=== PATIENT | male | born 1955 | race Caucasian/White ===

== ENCOUNTER 2019-12-10 01:46 | Inpatient (IN) | payer OTHER ==
[~2019-12-10] VITALS: Ht 180.3 cm; Wt 94.3 kg
[~2019-12-10 01:46] MED LIST: ARIP2 PO; DIVA-78 PO; INSLAN SQ; INSU100C3 SQ; LISI-662 PO; METF1000 PO; OMEP20 PO; PALI117D IM; QUET300T2 PO; RISP2 PO
[2019-12-10 02:15] LABS: APPEARANCE,URINE CLEAR (CLEAR); BILIRUBIN,URINE NEGATIVE (NEGATIVE); GLUCOSE, URINE (UA) 500 mg/dL (NEGATIVE); KETONES,URINE TRACE mg/dL (NEGATIVE); LEUKOCYTE ESTERASE ,URINE NEGATIVE (NEGATIVE); NITRATE,URINE NEGATIVE (NEGATIVE); OCCULT BLOOD,URINE NEGATIVE (NEGATIVE); PROTEIN,URINE NEGATIVE (NEGATIVE); UROBILINOGEN,URINE 0.2 mg/dL (<=1.0)
[2019-12-10 02:26] LABS: BACTERIA,URINE None Seen /HPF (None Seen); RBC,URINE 0-2 /HPF (0-2); SQUAMOUS EPITHELIAL CELL,UR Rare /LPF (None Seen); WBC,URINE 0-2 /HPF (0-5)
[2019-12-10 02:29] LABS: BASOPHILS % (AUTO) 0.3 % (0.0-2.0); EOSINOPHILS % (AUTO) 0.2 % (1.0-6.0); HEMATOCRIT 40.8 % (41-53); HEMOGLOBIN 13.9 g/dL (13.5-17.5); LYMPHOCYTES # (AUTO) 1.1 K/uL (1.0-4.8); LYMPHOCYTES % (AUTO) 12.8 % (22.0-44.0); MEAN CORPUSCULAR HEMOGLOBIN 32.7 pg (26.0-34.0); MEAN CORPUSCULAR HGB CONC 34.1 G/dL (31.0-37.0); MEAN CORPUSCULAR VOLUME 96 fL (80-100); MONOCYTES # (AUTO) 0.4 K/uL (0.1-1.0); MONOCYTES % (AUTO) 4.6 % (2.0-9.0); NEUTROPHILS # (AUTO) 6.8 K/uL (1.8-7.7); NEUTROPHILS % (AUTO) 82.1 % (40.0-70.0); PLATELET COUNT (AUTO) 203 K/uL (150-450); RED BLOOD CELL COUNT(AUTO) 4.25 MIL/uL (4.50-5.90); RED CELL DISTRIBUTION WIDTH 12.8 % (11.5-14.5)
[2019-12-10 02:36] LABS: CALCIUM, TOTAL 9.9 mg/dL (8.8-10.5); CREATININE 1.23 mg/dL (0.60-1.30); POTASSIUM 4.3 mmol/L (3.5-5.1)
[2019-12-10 02:49] LABS: ALBUMIN 3.7 g/dL (3.4-5.0); BILIRUBIN,TOTAL 0.2 mg/dL (0.1-1.0); TOTAL PROTEIN, SERUM 7.8 g/dL (6.4-8.2)
[2019-12-10 02:52] LABS: GLUCOSE,POINT OF CARE 157 MG/DL (70-110)
[2019-12-10] MEDS ORDERED: 0.9% SODIUM CHLORIDE 10 ML SYRINGE IVP PRN ×2 (05:00→07:15)
[2019-12-10] MEDS ORDERED: ACETAMINOPHEN 325 MG TABLET PO PRN (05:00)
[2019-12-10] MEDS ORDERED: ONDANSETRON HCL 4 MG/2 ML VIAL IVP PRN ×2 (05:00→07:15)
[2019-12-10 07:10] LABS: GLUCOSE,POINT OF CARE 210 MG/DL (70-110)
[2019-12-10] MEDS ORDERED: LORazepam 2 MG/ML VIAL IVP PRN (07:15)
[2019-12-10] MEDS ORDERED: MAGNESIUM SULFATE 4 GM/WATER 100 ML IV PRN (07:15)
[2019-12-10] MEDS ORDERED: POTASSIUM CHLORIDE 20 MEQ ER TABLET PO PRN (07:15)
[2019-12-10] MEDS ORDERED: DEXTROSE 50%-WATER 25 GM/50 ML SYRINGE IVP PRN (07:15)
[2019-12-10] MEDS ORDERED: ZOLPIDEM TARTRATE 5 MG TABLET PO PRN (07:15)
[2019-12-10] MEDS: MetFORMIN HCL 500 MG TABLET PO SCH ×2 (07:26→19:14)
[2019-12-10] MEDS: DIVALPROEX SODIUM 500 MG DR TABLET PO SCH (08:52)
[2019-12-10] MEDS: DOCUSATE SODIUM 100 MG CAPSULE PO SCH ×2 (08:53→20:10)
[2019-12-10] MEDS: PANTOPRAZOLE SODIUM 40 MG DR TABLET PO SCH (08:53)
[2019-12-10] MEDS ORDERED: OMEPRAZOLE 20 MG CAPSULE PO SCH (09:00)
[2019-12-10] MEDS ORDERED: PALIPERIDONE PALMITATE 117 MG/0.75 ML SYRINGE IM SCH (09:00)
[2019-12-10] MEDS: RisperiDONE 2 MG TABLET PO SCH (09:32)
[2019-12-10] MEDS: QUEtiapine FUMARATE 300 MG TABLET PO SCH (09:32)
[2019-12-10] MEDS: LISINOPRIL 20 MG TABLET PO SCH (09:32)
[2019-12-10] MEDS: ARIPiprazole 2 MG TABLET PO SCH (09:32)
[2019-12-10] MEDS ORDERED: METF-960 PO (10:50)
[2019-12-10] MEDS ORDERED: INSU100V SQ (10:50)
[2019-12-10 13:10] LABS: GLUCOSE,POINT OF CARE 218 MG/DL (70-110)
[2019-12-10 18:32] LABS: GLUCOSE,POINT OF CARE 232 MG/DL (70-110)
[2019-12-10] MEDS: INSULIN LISPRO 100 UNITS/ML SQ PRN (21:05)
[2019-12-10] MEDS: INSULIN GLARGINE,HUM.REC.ANLOG 100 UNITS/ML SQ SCH (21:07)
[2019-12-10 21:52] VITALS: BP 132/80
[2019-12-10 23:59] VITALS: BP 164/86
[2019-12-11 02:17] LABS: GLUCOMETER DEV NAME(LOC) 5N.2; GLUCOSE,POINT OF CARE 211 MG/DL (70-110)
[2019-12-11 04:28] VITALS: BP 132/69
[2019-12-11] MEDS: INSULIN LISPRO 100 UNITS/ML SQ PRN ×4 (06:29→20:56)
[2019-12-11 07:37] LABS: BASOPHILS % (AUTO) 0.4 % (0.0-2.0); EOSINOPHILS % (AUTO) 4.2 % (1.0-6.0); HEMATOCRIT 36.1 % (41-53); HEMOGLOBIN 12.6 g/dL (13.5-17.5); LYMPHOCYTES # (AUTO) 2.9 K/uL (1.0-4.8); LYMPHOCYTES % (AUTO) 52.1 % (22.0-44.0); MEAN CORPUSCULAR HEMOGLOBIN 33.1 pg (26.0-34.0); MEAN CORPUSCULAR HGB CONC 34.9 G/dL (31.0-37.0); MEAN CORPUSCULAR VOLUME 95 fL (80-100); MONOCYTES # (AUTO) 0.5 K/uL (0.1-1.0); NEUTROPHILS # (AUTO) 1.9 K/uL (1.8-7.7); NEUTROPHILS % (AUTO) 34.3 % (40.0-70.0); PLATELET COUNT (AUTO) 193 K/uL (150-450); RED CELL DISTRIBUTION WIDTH 12.8 % (11.5-14.5)
[2019-12-11 08:13] LABS: ALANINE AMINOTRANSFERASE 14 U/L (12-78); ALKALINE PHOSPHATASE 55 U/L (46-116); ANION GAP 8 mmol/L (8-16); ASPARTATE AMINOTRANSFERASE 10 U/L (15-37); BILIRUBIN,TOTAL 0.2 mg/dL (0.1-1.0); CALCIUM, TOTAL 8.9 mg/dL (8.8-10.5); CARBON DIOXIDE 30 mmol/L (22-29); CHLORIDE 96 mmol/L (98-107); CREATININE 1.03 mg/dL (0.60-1.30); GLOMERULAR FILTR. RATE CALC > 60 mL/min (>60); GLUCOSE,RANDOM 177 mg/dL (70-110); POTASSIUM 3.5 mmol/L (3.5-5.1); SODIUM SERUM 134 mmol/L (136-145); TOTAL PROTEIN, SERUM 6.6 g/dL (6.4-8.2); UREA NITROGEN, BLOOD 12 mg/dL (7-18)
[2019-12-11] MEDS: DOCUSATE SODIUM 100 MG CAPSULE PO SCH ×2 (08:29→20:53)
[2019-12-11] MEDS: MetFORMIN HCL 500 MG TABLET PO SCH ×2 (08:29→17:42)
[2019-12-11] MEDS: PANTOPRAZOLE SODIUM 40 MG DR TABLET PO SCH (08:29)
[2019-12-11] MEDS: RisperiDONE 2 MG TABLET PO SCH (08:30)
[2019-12-11] MEDS: ARIPiprazole 2 MG TABLET PO SCH (08:30)
[2019-12-11] MEDS: LISINOPRIL 20 MG TABLET PO SCH (08:30)
[2019-12-11] MEDS: QUEtiapine FUMARATE 300 MG TABLET PO SCH (08:30)
[2019-12-11] MEDS: DIVALPROEX SODIUM 500 MG DR TABLET PO SCH (08:30)
[2019-12-11 08:38] VITALS: BP 158/101
[2019-12-11] MEDS ORDERED: SODIUM CHLORIDE 0.9% 0 ML IV ONE (10:26)
[2019-12-11] MEDS: POTASSIUM CHL 10 MEQ/WATER 50 ML IV PRN ×3 (11:08→13:59)
[2019-12-11 11:39] VITALS: BP 143/81
[2019-12-11] MEDS: MAGNESIUM SULFATE 2 GM/WATER 50 ML IV PRN (11:42)
[2019-12-11 12:38] LABS: GLUCOMETER DEV NAME(LOC) 5N.2; GLUCOSE,POINT OF CARE 209 MG/DL (70-110)
[2019-12-11 12:38] LABS: GLUCOMETER DEV NAME(LOC) 5N.2; GLUCOSE,POINT OF CARE 205 MG/DL (70-110)
[2019-12-11 16:29] VITALS: BP 135/69
[2019-12-11 19:18] VITALS: BP 146/88
[2019-12-11 20:49] LABS: GLUCOMETER DEV NAME(LOC) 5N.2; GLUCOSE,POINT OF CARE 234 MG/DL (70-110)
[2019-12-11] MEDS: INSULIN GLARGINE,HUM.REC.ANLOG 100 UNITS/ML SQ SCH (20:56)
[2019-12-11 21:21] LABS: GLUCOMETER DEV NAME(LOC) 5S.2A; GLUCOSE,POINT OF CARE 157 MG/DL (70-110)
[2019-12-12 00:16] VITALS: BP 139/79
[2019-12-12 05:28] VITALS: BP 152/72
[2019-12-12] MEDS: INSULIN LISPRO 100 UNITS/ML SQ PRN ×4 (06:02→20:40)
[2019-12-12 06:16] LABS: GLUCOMETER DEV NAME(LOC) 5S.2A; GLUCOSE,POINT OF CARE 174 MG/DL (70-110)
[2019-12-12 07:00] VITALS: BP 151/87
[2019-12-12 07:26] LABS: ANION GAP 8 mmol/L (8-16); CALCIUM, TOTAL 8.9 mg/dL (8.8-10.5); CARBON DIOXIDE 29 mmol/L (22-29); CHLORIDE 97 mmol/L (98-107); CREATININE 0.84 mg/dL (0.60-1.30); GLOMERULAR FILTR. RATE CALC > 60 mL/min (>60); GLUCOSE,RANDOM 176 mg/dL (70-110); POTASSIUM 3.9 mmol/L (3.5-5.1); SODIUM SERUM 134 mmol/L (136-145); UREA NITROGEN, BLOOD 14 mg/dL (7-18)
[2019-12-12] MEDS: ARIPiprazole 2 MG TABLET PO SCH (08:22)
[2019-12-12] MEDS: MetFORMIN HCL 500 MG TABLET PO SCH ×2 (08:22→17:52)
[2019-12-12] MEDS: DOCUSATE SODIUM 100 MG CAPSULE PO SCH ×2 (08:23→20:32)
[2019-12-12] MEDS: DIVALPROEX SODIUM 500 MG DR TABLET PO SCH (08:24)
[2019-12-12] MEDS: PANTOPRAZOLE SODIUM 40 MG DR TABLET PO SCH (08:25)
[2019-12-12] MEDS: QUEtiapine FUMARATE 300 MG TABLET PO SCH (08:25)
[2019-12-12] MEDS: RisperiDONE 2 MG TABLET PO SCH (08:25)
[2019-12-12] MEDS: MAGNESIUM OXIDE 400 MG TABLET PO PRN ×3 (08:40→22:07)
[2019-12-12] MEDS: LISINOPRIL 20 MG TABLET PO SCH (08:40)
[2019-12-12 11:01] VITALS: BP 144/71
[2019-12-12 12:12] LABS: GLUCOMETER DEV NAME(LOC) 5N.2; GLUCOSE,POINT OF CARE 166 MG/DL (70-110)
[2019-12-12 15:29] VITALS: BP 144/79
[2019-12-12 20:20] VITALS: BP 145/84
[2019-12-12 20:34] LABS: GLUCOMETER DEV NAME(LOC) 5N.2; GLUCOSE,POINT OF CARE 176 MG/DL (70-110)
[2019-12-12 20:34] LABS: GLUCOMETER DEV NAME(LOC) 5N.2; GLUCOSE,POINT OF CARE 203 MG/DL (70-110)
[2019-12-12] MEDS: INSULIN GLARGINE,HUM.REC.ANLOG 100 UNITS/ML SQ SCH (20:39)
[2019-12-13] VITALS (7 sets, daily range): BP systolic 116–163; BP diastolic 52–90
[2019-12-13] MEDS: ACETAMINOPHEN 325 MG TABLET PO PRN ×2 (04:18→20:51)
[2019-12-13] MEDS: INSULIN LISPRO 100 UNITS/ML SQ PRN ×3 (05:50→17:17)
[2019-12-13 05:55] LABS: BASOPHILS % (AUTO) 0.7 % (0.0-2.0); EOSINOPHILS % (AUTO) 6.4 % (1.0-6.0); HEMATOCRIT 36.2 % (41-53); HEMOGLOBIN 12.6 g/dL (13.5-17.5); LYMPHOCYTES # (AUTO) 2.4 K/uL (1.0-4.8); LYMPHOCYTES % (AUTO) 44.9 % (22.0-44.0); MEAN CORPUSCULAR HEMOGLOBIN 32.6 pg (26.0-34.0); MEAN CORPUSCULAR HGB CONC 34.8 G/dL (31.0-37.0); MEAN CORPUSCULAR VOLUME 94 fL (80-100); MONOCYTES # (AUTO) 0.5 K/uL (0.1-1.0); MONOCYTES % (AUTO) 9.7 % (2.0-9.0); NEUTROPHILS % (AUTO) 38.3 % (40.0-70.0); PLATELET COUNT (AUTO) 185 K/uL (150-450); RED BLOOD CELL COUNT(AUTO) 3.87 MIL/uL (4.50-5.90); RED CELL DISTRIBUTION WIDTH 12.7 % (11.5-14.5)
[2019-12-13 06:20] LABS: ANION GAP 9 mmol/L (8-16); CALCIUM, TOTAL 8.8 mg/dL (8.8-10.5); CARBON DIOXIDE 26 mmol/L (22-29); CHLORIDE 99 mmol/L (98-107); CREATININE 0.97 mg/dL (0.60-1.30); GLOMERULAR FILTR. RATE CALC > 60 mL/min (>60); GLUCOSE,RANDOM 144 mg/dL (70-110); POTASSIUM 3.8 mmol/L (3.5-5.1); SODIUM SERUM 134 mmol/L (136-145); UREA NITROGEN, BLOOD 14 mg/dL (7-18)
[2019-12-13] MEDS: DIVALPROEX SODIUM 500 MG DR TABLET PO SCH (08:33)
[2019-12-13] MEDS: DOCUSATE SODIUM 100 MG CAPSULE PO SCH ×2 (08:34→20:51)
[2019-12-13] MEDS: ARIPiprazole 2 MG TABLET PO SCH (08:34)
[2019-12-13] MEDS: QUEtiapine FUMARATE 300 MG TABLET PO SCH (08:34)
[2019-12-13] MEDS: RisperiDONE 2 MG TABLET PO SCH (08:34)
[2019-12-13] MEDS: LISINOPRIL 20 MG TABLET PO SCH (08:34)
[2019-12-13] MEDS: MetFORMIN HCL 500 MG TABLET PO SCH ×2 (08:34→17:16)
[2019-12-13] MEDS: PANTOPRAZOLE SODIUM 40 MG DR TABLET PO SCH (08:34)
[2019-12-13] MEDS: MAGNESIUM SULFATE 2 GM/WATER 50 ML IV PRN (09:33)
[2019-12-13 14:28] LABS: GLUCOMETER DEV NAME(LOC) 5N.2; GLUCOSE,POINT OF CARE 155 MG/DL (70-110)
[2019-12-13 18:30] LABS: GLUCOMETER DEV NAME(LOC) 5N.2; GLUCOSE,POINT OF CARE 141 MG/DL (70-110)
[2019-12-13 18:31] LABS: GLUCOMETER DEV NAME(LOC) 5S.2A; GLUCOSE,POINT OF CARE 145 MG/DL (70-110)
[2019-12-13] MEDS: INSULIN GLARGINE,HUM.REC.ANLOG 100 UNITS/ML SQ SCH (22:28)
[2019-12-14 05:09] VITALS: BP 155/98
[2019-12-14 06:23] LABS: GLUCOMETER DEV NAME(LOC) 5S.2A; GLUCOSE,POINT OF CARE 135 MG/DL (70-110)
[2019-12-14 07:06] LABS: BASOPHILS % (AUTO) 0.4 % (0.0-2.0); EOSINOPHILS % (AUTO) 6.2 % (1.0-6.0); HEMATOCRIT 37.1 % (41-53); LYMPHOCYTES # (AUTO) 2.5 K/uL (1.0-4.8); LYMPHOCYTES % (AUTO) 45.6 % (22.0-44.0); MEAN CORPUSCULAR HEMOGLOBIN 32.7 pg (26.0-34.0); MEAN CORPUSCULAR VOLUME 93 fL (80-100); MONOCYTES # (AUTO) 0.4 K/uL (0.1-1.0); MONOCYTES % (AUTO) 7.8 % (2.0-9.0); NEUTROPHILS # (AUTO) 2.2 K/uL (1.8-7.7); PLATELET COUNT (AUTO) 185 K/uL (150-450); RED BLOOD CELL COUNT(AUTO) 3.98 MIL/uL (4.50-5.90); RED CELL DISTRIBUTION WIDTH 12.6 % (11.5-14.5)
[2019-12-14 07:15] LABS: PROTHROMBIN TIME 10.2 SEC (9.4-11.6)
[2019-12-14 07:29] LABS: ALANINE AMINOTRANSFERASE 13 U/L (12-78); ALBUMIN 3.2 g/dL (3.4-5.0); ALKALINE PHOSPHATASE 51 U/L (46-116); ANION GAP 7 mmol/L (8-16); ASPARTATE AMINOTRANSFERASE 6 U/L (15-37); BILIRUBIN,TOTAL 0.3 mg/dL (0.1-1.0); CALCIUM, TOTAL 8.9 mg/dL (8.8-10.5); CARBON DIOXIDE 27 mmol/L (22-29); CHLORIDE 99 mmol/L (98-107); CREATININE 0.92 mg/dL (0.60-1.30); GLOMERULAR FILTR. RATE CALC > 60 mL/min (>60); GLUCOSE,RANDOM 139 mg/dL (70-110); POTASSIUM 4.4 mmol/L (3.5-5.1); SODIUM SERUM 133 mmol/L (136-145); TOTAL PROTEIN, SERUM 6.7 g/dL (6.4-8.2); UREA NITROGEN, BLOOD 15 mg/dL (7-18)
[2019-12-14 08:09] LABS: GLUCOMETER DEV NAME(LOC) 5S.2A; GLUCOSE,POINT OF CARE 132 MG/DL (70-110)
[2019-12-14 08:21] VITALS: BP 119/75
[2019-12-14] MEDS: RisperiDONE 2 MG TABLET PO SCH (09:04)
[2019-12-14] MEDS: DIVALPROEX SODIUM 500 MG DR TABLET PO SCH (09:04)
[2019-12-14] MEDS: MAGNESIUM SULFATE 2 GM/WATER 50 ML IV PRN (09:04)
[2019-12-14] MEDS: QUEtiapine FUMARATE 300 MG TABLET PO SCH (09:04)
[2019-12-14] MEDS: LISINOPRIL 20 MG TABLET PO SCH (09:05)
[2019-12-14] MEDS: MetFORMIN HCL 500 MG TABLET PO SCH ×2 (09:05→17:11)
[2019-12-14] MEDS: ARIPiprazole 2 MG TABLET PO SCH (09:05)
[2019-12-14] MEDS: DOCUSATE SODIUM 100 MG CAPSULE PO SCH ×2 (09:05→21:41)
[2019-12-14] MEDS: PANTOPRAZOLE SODIUM 40 MG DR TABLET PO SCH (09:05)
[2019-12-14 11:15] VITALS: BP 128/77
[2019-12-14] MEDS: INSULIN LISPRO 100 UNITS/ML SQ PRN ×2 (12:20→21:57)
[2019-12-14 15:31] VITALS: BP 158/78
[2019-12-14] MEDS: GABAPENTIN 300 MG CAPSULE PO SCH ×2 (17:11→21:41)
[2019-12-14 19:36] VITALS: BP 147/85
[2019-12-14] MEDS: INSULIN GLARGINE,HUM.REC.ANLOG 100 UNITS/ML SQ SCH (22:00)
[2019-12-15] VITALS (14 sets, daily range): BP systolic 114–154; BP diastolic 61–99
[2019-12-15 03:25] LABS: GLUCOMETER DEV NAME(LOC) 5S.2A; GLUCOSE,POINT OF CARE 146 MG/DL (70-110)
[2019-12-15 03:25] LABS: GLUCOMETER DEV NAME(LOC) 5N.2; GLUCOSE,POINT OF CARE 143 MG/DL (70-110)
[2019-12-15 03:25] LABS: GLUCOMETER DEV NAME(LOC) 5S.2A; GLUCOSE,POINT OF CARE 180 MG/DL (70-110)
[2019-12-15 06:27] LABS: BASOPHILS % (AUTO) 0.8 % (0.0-2.0); EOSINOPHILS % (AUTO) 6.5 % (1.0-6.0); HEMATOCRIT 38.3 % (41-53); HEMOGLOBIN 13.3 g/dL (13.5-17.5); LYMPHOCYTES # (AUTO) 2.6 K/uL (1.0-4.8); LYMPHOCYTES % (AUTO) 44.2 % (22.0-44.0); MEAN CORPUSCULAR HEMOGLOBIN 32.6 pg (26.0-34.0); MEAN CORPUSCULAR HGB CONC 34.8 G/dL (31.0-37.0); MEAN CORPUSCULAR VOLUME 94 fL (80-100); MONOCYTES # (AUTO) 0.4 K/uL (0.1-1.0); MONOCYTES % (AUTO) 7.7 % (2.0-9.0); NEUTROPHILS # (AUTO) 2.4 K/uL (1.8-7.7); NEUTROPHILS % (AUTO) 40.8 % (40.0-70.0); PLATELET COUNT (AUTO) 194 K/uL (150-450); RED BLOOD CELL COUNT(AUTO) 4.08 MIL/uL (4.50-5.90); RED CELL DISTRIBUTION WIDTH 12.9 % (11.5-14.5)
[2019-12-15 06:37] LABS: PROTHROMBIN TIME 10.3 SEC (9.4-11.6)
[2019-12-15 06:55] LABS: ALANINE AMINOTRANSFERASE 16 U/L (12-78); ALBUMIN 3.2 g/dL (3.4-5.0); ALKALINE PHOSPHATASE 51 U/L (46-116); ANION GAP 7 mmol/L (8-16); ASPARTATE AMINOTRANSFERASE 7 U/L (15-37); BILIRUBIN,TOTAL 0.3 mg/dL (0.1-1.0); CALCIUM, TOTAL 9.2 mg/dL (8.8-10.5); CARBON DIOXIDE 29 mmol/L (22-29); CHLORIDE 102 mmol/L (98-107); CREATININE 0.81 mg/dL (0.60-1.30); GLOMERULAR FILTR. RATE CALC > 60 mL/min (>60); GLUCOSE,RANDOM 133 mg/dL (70-110); POTASSIUM 4.6 mmol/L (3.5-5.1); SODIUM SERUM 138 mmol/L (136-145); TOTAL PROTEIN, SERUM 6.7 g/dL (6.4-8.2); UREA NITROGEN, BLOOD 17 mg/dL (7-18)
[2019-12-15] MEDS ORDERED: LIDOCAINE/PF 1% 30 ML VIAL ONE (08:42)
[2019-12-15] MEDS ORDERED: SODIUM BICARBONATE 50 MEQ/50 ML VIAL ONE (08:42)
[2019-12-15] MEDS ORDERED: MIDAZOLAM HCL 2 MG/2 ML VIAL ONE (09:31)
[2019-12-15] MEDS ORDERED: FentaNYL CITRATE-PF 100 MCG/2 ML VIAL ONE (09:31)
[2019-12-15] MEDS ORDERED: SODIUM CHLORIDE 0.9% 500 ML IV ONE (09:35)
[2019-12-15] MEDS ORDERED: LIDOCAINE 1% 30 ML/SOD BICARB 8.4% 4 ML SQ ONE (09:45)
[2019-12-15] MEDS ORDERED: FentaNYL CITRATE-PF 100 MCG/2 ML VIAL IVP ONE ×3 (10:00→10:15)
[2019-12-15] MEDS ORDERED: MIDAZOLAM HCL 2 MG/2 ML VIAL IVP ONE ×3 (10:00→10:15)
[2019-12-15] MEDS ORDERED: HYDROCODONE/ACETAMINOPHEN 5-325 MG TABLET PO PRN (11:00)
[2019-12-15] MEDS ORDERED: SODIUM CHLORIDE 0.9% 250 ML IV ONE (14:51)
[2019-12-15] MEDS: ARIPiprazole 2 MG TABLET PO SCH (14:58)
[2019-12-15] MEDS: GABAPENTIN 300 MG CAPSULE PO SCH ×3 (14:58→20:21)
[2019-12-15] MEDS: RisperiDONE 2 MG TABLET PO SCH (14:59)
[2019-12-15] MEDS: PANTOPRAZOLE SODIUM 40 MG DR TABLET PO SCH (14:59)
[2019-12-15] MEDS: LISINOPRIL 20 MG TABLET PO SCH (14:59)
[2019-12-15] MEDS: DIVALPROEX SODIUM 500 MG DR TABLET PO SCH (15:01)
[2019-12-15] MEDS: MetFORMIN HCL 500 MG TABLET PO SCH ×2 (15:01→17:28)
[2019-12-15] MEDS: DOCUSATE SODIUM 100 MG CAPSULE PO SCH ×2 (15:01→20:21)
[2019-12-15] MEDS: CeFAZolin 1 GM/DEXTROSE 50 ML IV SCH ×2 (15:02→21:14)
[2019-12-15] MEDS: ACETAMINOPHEN 325 MG TABLET PO PRN (17:28)
[2019-12-15] MEDS: INSULIN LISPRO 100 UNITS/ML SQ PRN ×2 (17:34→20:34)
[2019-12-15] MEDS: MAGNESIUM OXIDE 400 MG TABLET PO PRN (17:36)
[2019-12-15] MEDS: INSULIN GLARGINE,HUM.REC.ANLOG 100 UNITS/ML SQ SCH (20:34)
[2019-12-16 00:22] VITALS: BP 145/73
[2019-12-16] MEDS: ACETAMINOPHEN 325 MG TABLET PO PRN ×2 (02:31→10:39)
[2019-12-16 03:35] VITALS: BP 131/86
[2019-12-16 06:41] LABS: GLUCOMETER DEV NAME(LOC) 5N.2; GLUCOSE,POINT OF CARE 141 MG/DL (70-110)
[2019-12-16 06:42] LABS: GLUCOMETER DEV NAME(LOC) 5N.2; GLUCOSE,POINT OF CARE 181 MG/DL (70-110)
[2019-12-16 06:42] LABS: GLUCOMETER DEV NAME(LOC) 5N.2; GLUCOSE,POINT OF CARE 155 MG/DL (70-110)
[2019-12-16 07:59] LABS: GLUCOMETER DEV NAME(LOC) 5N.2; GLUCOSE,POINT OF CARE 125 MG/DL (70-110)
[2019-12-16] MEDS: MAGNESIUM OXIDE 400 MG TABLET PO PRN ×2 (08:39→18:14)
[2019-12-16 08:41] VITALS: BP 129/68
[2019-12-16] MEDS: LISINOPRIL 20 MG TABLET PO SCH (10:27)
[2019-12-16] MEDS: PANTOPRAZOLE SODIUM 40 MG DR TABLET PO SCH (10:27)
[2019-12-16] MEDS: RisperiDONE 2 MG TABLET PO SCH (10:27)
[2019-12-16] MEDS: MetFORMIN HCL 500 MG TABLET PO SCH ×2 (10:28→18:15)
[2019-12-16] MEDS: DOCUSATE SODIUM 100 MG CAPSULE PO SCH (10:28)
[2019-12-16] MEDS: DIVALPROEX SODIUM 500 MG DR TABLET PO SCH (10:28)
[2019-12-16] MEDS: GABAPENTIN 300 MG CAPSULE PO SCH ×2 (10:29→18:15)
[2019-12-16] MEDS: ARIPiprazole 2 MG TABLET PO SCH (10:29)
[2019-12-16] MEDS: INSULIN LISPRO 100 UNITS/ML SQ PRN ×2 (12:04→18:19)
[2019-12-16 12:40] VITALS: BP 124/77
[2019-12-16] MEDS ORDERED: MAGOX PO (14:36)
[2019-12-16 16:55] VITALS: BP 150/73
[2019-12-16 21:36] LABS: GLUCOMETER DEV NAME(LOC) 5S.2A; GLUCOSE,POINT OF CARE 222 MG/DL (70-110)
[2019-12-17 02:53] LABS: GLUCOMETER DEV NAME(LOC) 5N.2; GLUCOSE,POINT OF CARE 236 MG/DL (70-110)
== END 2019-12-16 19:00 | disposition home or self-care (01) | DRG 242 ==
LOC: EMS 01:47 → 5N 10:36 → 5S 20:40
PROVIDERS: ADMIT Internal Medicine; ATTEND Internal Medicine
PROC: 0JH606Z Insertion of Pacemaker, Dual Chamber into Chest Subcutaneous Tissue and Fascia, Open Approach (ICD-10-PCS; principal; 2019-12-15)
PROC: 02H63JZ Insertion of Pacemaker Lead into Right Atrium, Percutaneous Approach (ICD-10-PCS; 2019-12-15)
PROC: 02HK3JZ Insertion of Pacemaker Lead into Right Ventricle, Percutaneous Approach (ICD-10-PCS; 2019-12-15)
DX: I49.5 Sick sinus syndrome (principal); G93.41 Metabolic encephalopathy; E44.1 Mild protein-calorie malnutrition; G40.909 Epilepsy, unspecified, not intractable, without status epilepticus; E11.9 Type 2 diabetes mellitus without complications; F20.9 Schizophrenia, unspecified; I10 Essential (primary) hypertension; F10.20 Alcohol dependence, uncomplicated; F11.90 Opioid use, unspecified, uncomplicated; G24.01 Drug induced subacute dyskinesia; W18.39XA Other fall on same level, initial encounter; K21.9 Gastro-esophageal reflux disease without esophagitis; F31.9 Bipolar disorder, unspecified; T50.995A Adverse effect of other drugs, medicaments and biological substances, initial encounter; S00.31XA Abrasion of nose, initial encounter; G20 Parkinson's disease; Z68.29 Body mass index [BMI] 29.0-29.9, adult; Z79.4 Long term (current) use of insulin; Z82.49 Family history of ischemic heart disease and other diseases of the circulatory system; Z97.4 Presence of external hearing-aid; Z83.3 Family history of diabetes mellitus; Z87.891 Personal history of nicotine dependence; Z79.899 Other long term (current) drug therapy; Y92.89 Other specified places as the place of occurrence of the external cause; Y93.89 Activity, other specified; Y99.8 Other external cause status
CPT/HCPCS: 33208; 70450; 70486; 70551; 72125; 76000; 83735; 84132; 93005; 93306; 93880; 97116; 97162; 97167; 97535; J0690; J1815; J2250; J3010; J3475; J3480; J3490; J7050